=== PATIENT | male | born 1935 | race Caucasian/White ===

== ENCOUNTER 2018-08-30 10:56 | Inpatient (IN) | payer MEDICAID, MEDICARE ==
[~2018-08-30] VITALS: Ht 177.8 cm; Wt 119.1 kg
[~2018-08-30 10:56] MED LIST: EZET10TA6 PO; INSLANTI SC; MAGN400T23 PO
[2018-08-30] MEDS ORDERED: SODIUM CHLORIDE 0.9% 500 ML IV ONE (11:28)
[2018-08-30 12:19] LABS: Basophils # (auto) 0.1 uL; Basophils % (auto) 1.2 % (0.0-2.0); Eosinophils # (auto) 0.4 uL; Eosinophils % (auto) 5.5 % (0.0-7.0); Hematocrit 40.9 % (41.0-53.0); Hemoglobin 13.4 g/dL (13.5-17.5); Lymphocytes # (auto) 1.6 uL; Lymphocytes % (auto) 23.2 % (10.0-50.0); Mean Corpuscular Hemoglobin 29.3 pg (28.0-32.0); Mean Corpuscular Hgb Conc. 32.8 g/dL (32.0-36.0); Mean Corpuscular Volume 89.4 fL (80.0-100.0); Monocytes # (auto) 0.4 uL; Monocytes % (auto) 5.8 % (0.0-12.0); Neutrophils # (auto) 4.6 uL; Neutrophils % (auto) 64.3 % (37.0-80.0); Nucleated Red Blood Cells % 0.1 %; Platelet Count (auto) 186 10^3/uL (140-450); Red Blood Cells 4.57 10^6/uL (4.5-5.90); Red Cell Distribution Width 15.8 % (11.8-14.3); White Blood Cell 7.1 10^3/uL (4.4-10.8)
[2018-08-30 12:23] LABS: INR 0.98 (0.9-1.15); Partial Thromboplastin Time 24.5 sec (23.78-33.04); Prothrombin Time 10.5 sec (9.27-12.13)
[2018-08-30 12:28] LABS: Albumin 3.3 g/dL (3.4-5.0); Calcium 9.2 mg/dL (8.5-10.1); Magnesium 2.1 mg/dL (1.6-2.6); Potassium 4.8 mmol/L (3.5-5.1)
[2018-08-30 12:32] LABS: BUN/Creatinine Ratio 18.9; Bilirubin, Total 0.4 mg/dL (0.2-1.0); Total Protein 8.1 g/dL (6.4-8.2)
[2018-08-30] MEDS ORDERED: LORazepam 0.5 MG TAB PO PRN (13:15)
[2018-08-30] MEDS ORDERED: NITROGLYCERIN 0.4 MG SL TAB SL PRN (13:15)
[2018-08-30] MEDS ORDERED: LACTULOSE 20Gm/30ML SOLN PO PRN (13:15)
[2018-08-30] MEDS ORDERED: ACETAMINOPHEN 500 MG TAB PO PRN (13:15)
[2018-08-30] MEDS ORDERED: MORPHINE SULFATE 4 MG/ML SYR/VIAL IV PRN ×2 (13:15)
[2018-08-30] MEDS ORDERED: ONDANSETRON HCL 4 MG/2 ML VIAL IV PRN (13:15)
[2018-08-30] MEDS ORDERED: DEXTROSE (50%) 50ML SYRG IV PRN (13:15)
[2018-08-30] MEDS ORDERED: HYDROcodone-ACET 5/325MG TAB PO PRN (13:15)
[2018-08-30] MEDS ORDERED: TEMAZEPAM 15 MG CAP PO PRN (13:15)
[2018-08-30] MEDS ORDERED: ENOXAPARIN SOD 40 MG/0.4 ML SYRINGE SC ONE ×2 (13:30→14:45)
[2018-08-30] MEDS ORDERED: PANTOPRAZOLE 40 MG TAB PO ONE ×2 (13:30→14:45)
[2018-08-30] MEDS: CLINDAMYCIN 600MG IV 50 ML IV SCH ×2 (14:02→21:42)
[2018-08-30] MEDS: SODIUM CHLORIDE 0.9% 1,000 ML IV SCH (14:02)
[2018-08-30 14:35] VITALS: BP 155/83
[2018-08-30] MEDS ORDERED: MAGNESIUM OXIDE 400 MG TAB PO ONE (14:45)
[2018-08-30] MEDS ORDERED: METOPROLOL TARTRATE 25 MG TAB PO ONE (14:45)
[2018-08-30] MEDS ORDERED: ALLOPURINOL 100 MG TAB PO ONE (14:45)
[2018-08-30] MEDS ORDERED: CLINDAMYCIN 600MG IV 50 ML IV ONE (14:45)
[2018-08-30] MEDS ORDERED: cefTRIAXone 1GM/10ml IVPUSH 10 ML IV ONE (15:00)
[2018-08-30] MEDS: EZETIMIBE 10 MG PO SCH (16:00)
[2018-08-30 17:00] VITALS: BP 155/83
[2018-08-30] MEDS: ACCU-CHEK COMFORT CURVE STRIP VI SCH ×2 (17:20→21:44)
[2018-08-30] MEDS: InsuLIN REG 1unit/0.01ml Soln (100units/ml) SC SCH ×2 (17:21→21:44)
[2018-08-30 17:41] LABS: Urine Bacteria NONE SEEN /hpf (None Seen); Urine Blood Negative /uL (Negative); Urine Specific Gravity 1.016 (1.001-1.035); Urine WBC 1 /hpf (0 - 3)
[2018-08-30] MEDS: ATORVASTATIN 20 MG TAB PO SCH (21:42)
[2018-08-30] MEDS: METOPROLOL TARTRATE 25 MG TAB PO SCH (21:43)
[2018-08-30] MEDS: INSULIN LANTUS (GLARGINE) 1 /0.01ml (100units/ml) SC SCH (21:43)
[2018-08-30] MEDS: MAGNESIUM OXIDE 400 MG TAB PO SCH (21:43)
[2018-08-30 21:44] VITALS: BP 144/104
[2018-08-31] MEDS: SODIUM CHLORIDE 0.9% 1,000 ML IV SCH (01:34)
[2018-08-31 05:00] VITALS: BP 168/90
[2018-08-31] MEDS: InsuLIN REG 1unit/0.01ml Soln (100units/ml) SC SCH ×4 (06:32→22:45)
[2018-08-31] MEDS: ACCU-CHEK COMFORT CURVE STRIP VI SCH ×4 (06:32→22:46)
[2018-08-31] MEDS: CLINDAMYCIN 600MG IV 50 ML IV SCH ×3 (06:32→22:43)
[2018-08-31] MEDS: METOPROLOL TARTRATE 25 MG TAB PO SCH ×2 (07:36→22:44)
[2018-08-31 07:39] LABS: Albumin 3.1 g/dL (3.4-5.0)
[2018-08-31 07:45] LABS: BUN/Creatinine Ratio 20.4; Bilirubin, Total 0.5 mg/dL (0.2-1.0); Total Protein 7.2 g/dL (6.4-8.2)
[2018-08-31 08:00] VITALS: BP 132/72
[2018-08-31 08:29] LABS: INR 1.01 (0.9-1.15); Prothrombin Time 10.8 sec (9.27-12.13)
[2018-08-31] MEDS: SODIUM CHLORIDE 0.9% 250 ML IV SCH ×2 (08:33→08:45)
[2018-08-31] MEDS ORDERED: cefTRIAXone 1GM/10ml IVPUSH 10 ML IV SCH (09:00)
[2018-08-31] MEDS: ENOXAPARIN SOD 40 MG/0.4 ML SYRINGE SC SCH (10:00)
[2018-08-31] MEDS: ALLOPURINOL 100 MG TAB PO SCH (10:00)
[2018-08-31] MEDS: EZETIMIBE 10 MG PO SCH (10:00)
[2018-08-31] MEDS: MAGNESIUM OXIDE 400 MG TAB PO SCH ×2 (10:00→22:44)
[2018-08-31] MEDS: PANTOPRAZOLE 40 MG TAB PO SCH (10:00)
[2018-08-31] MEDS ORDERED: LIDOCAINE 2%HCL (LOCAL ANESTH.) INJ 10ml MDV ONE (11:32)
[2018-08-31] MEDS ORDERED: IODIXANOL 320MG/ML 100ML BTL IV ONE ×2 (11:32→12:25)
[2018-08-31] MEDS ORDERED: ANGIOMAX 250 MG VIAL IV ONE ×2 (11:37→12:25)
[2018-08-31] MEDS ORDERED: fentaNYL CITRATE 100 MCG/2 ML VL ONE (11:37)
[2018-08-31] MEDS ORDERED: MIDAZOLAM HCL 1MG/1ML-2 ML VIAL ONE (11:37)
[2018-08-31] MEDS ORDERED: SODIUM CHL 0.9% 0 ML ONE (11:37)
[2018-08-31] MEDS ORDERED: SODIUM CHL 0.9% 50 ML ONE (12:25)
[2018-08-31 16:33] VITALS: BP 167/87
[2018-08-31] MEDS: POVIDONE IODINE 10 % TOPICAL OINT 30GM TOP SCH (18:21)
[2018-08-31] MEDS: DAKINS QUARTER STR 0.125% (NaHypochlorite) 473 ML TOPICAL SOL TOP SCH ×3 (18:22→22:45)
[2018-08-31 22:00] VITALS: BP 139/75
[2018-08-31] MEDS: ATORVASTATIN 20 MG TAB PO SCH (22:43)
[2018-08-31] MEDS: INSULIN LANTUS (GLARGINE) 1 /0.01ml (100units/ml) SC SCH (22:45)
[2018-09-01 05:39] VITALS: BP 145/79
[2018-09-01] MEDS: CLINDAMYCIN 600MG IV 50 ML IV SCH ×3 (06:28→22:48)
[2018-09-01] MEDS: ACCU-CHEK COMFORT CURVE STRIP VI SCH ×4 (06:28→22:51)
[2018-09-01] MEDS: InsuLIN REG 1unit/0.01ml Soln (100units/ml) SC SCH ×4 (06:28→22:50)
[2018-09-01 08:31] VITALS: BP 148/85
[2018-09-01] MEDS: cefTRIAXone 1GM/50ML D5W 50 ML IV SCH (10:44)
[2018-09-01] MEDS: POVIDONE IODINE 10 % TOPICAL OINT 30GM TOP SCH (10:45)
[2018-09-01] MEDS: MAGNESIUM OXIDE 400 MG TAB PO SCH ×2 (10:47→22:50)
[2018-09-01] MEDS: PANTOPRAZOLE 40 MG TAB PO SCH (10:47)
[2018-09-01] MEDS: ALLOPURINOL 100 MG TAB PO SCH (10:47)
[2018-09-01] MEDS: METOPROLOL TARTRATE 25 MG TAB PO SCH ×2 (10:48→22:49)
[2018-09-01] MEDS: ENOXAPARIN SOD 40 MG/0.4 ML SYRINGE SC SCH (10:48)
[2018-09-01] MEDS: EZETIMIBE 10 MG PO SCH (10:48)
[2018-09-01] MEDS: DAKINS QUARTER STR 0.125% (NaHypochlorite) 473 ML TOPICAL SOL TOP SCH ×2 (10:49→22:00)
[2018-09-01 12:52] VITALS: BP 146/90
[2018-09-01 16:30] VITALS: BP 132/74
[2018-09-01 22:00] VITALS: BP 119/77
[2018-09-01] MEDS: ATORVASTATIN 20 MG TAB PO SCH (22:48)
[2018-09-01] MEDS: INSULIN LANTUS (GLARGINE) 1 /0.01ml (100units/ml) SC SCH (22:51)
[2018-09-02 05:00] VITALS: BP 149/76
[2018-09-02] MEDS: CLINDAMYCIN 600MG IV 50 ML IV SCH ×3 (06:58→23:07)
[2018-09-02] MEDS: InsuLIN REG 1unit/0.01ml Soln (100units/ml) SC SCH ×4 (06:58→23:10)
[2018-09-02] MEDS: ACCU-CHEK COMFORT CURVE STRIP VI SCH ×4 (06:58→23:11)
[2018-09-02 08:34] VITALS: BP 154/79
[2018-09-02] MEDS: MAGNESIUM OXIDE 400 MG TAB PO SCH ×2 (09:48→23:09)
[2018-09-02] MEDS: ALLOPURINOL 100 MG TAB PO SCH (09:48)
[2018-09-02] MEDS: PANTOPRAZOLE 40 MG TAB PO SCH (09:48)
[2018-09-02] MEDS: METOPROLOL TARTRATE 25 MG TAB PO SCH ×2 (09:48→23:09)
[2018-09-02] MEDS: EZETIMIBE 10 MG PO SCH (09:49)
[2018-09-02] MEDS: cefTRIAXone 1GM/50ML D5W 50 ML IV SCH (09:49)
[2018-09-02] MEDS: ENOXAPARIN SOD 40 MG/0.4 ML SYRINGE SC SCH (10:00)
[2018-09-02] MEDS: POVIDONE IODINE 10 % TOPICAL OINT 30GM TOP SCH (11:12)
[2018-09-02] MEDS: DAKINS QUARTER STR 0.125% (NaHypochlorite) 473 ML TOPICAL SOL TOP SCH ×2 (11:18→22:00)
[2018-09-02 12:51] VITALS: BP 145/85
[2018-09-02 16:54] VITALS: BP 126/53
[2018-09-02] MEDS ORDERED: KETOROLAC TROMETH 30 MG/ML 1ML VIAL IV ONE (17:00)
[2018-09-02] MEDS ORDERED: MIDAZOLAM HCL 1MG/1ML-2 ML VIAL IV PRN (17:00)
[2018-09-02] MEDS ORDERED: MORPHINE SULFATE 4 MG/ML SYR/VIAL IV PRN (17:00)
[2018-09-02] MEDS ORDERED: LABETALOL HCL 5 MG/ML 4ML SYRINGE IV PRN (17:00)
[2018-09-02] MEDS ORDERED: ONDANSETRON HCL 4 MG/2 ML VIAL IV ONE (17:00)
[2018-09-02] MEDS ORDERED: ePHEDrine SULFATE 50 MG/ML AMP IV PRN (17:00)
[2018-09-02] MEDS ORDERED: ACCU-CHEK COMFORT CURVE STRIP VI ONE (17:00)
[2018-09-02] MEDS ORDERED: HYDROmorphone HCL 2 MG/ML VL IV PRN (17:00)
[2018-09-02] MEDS ORDERED: fentaNYL CITRATE 100 MCG/2 ML VL ONE (17:03)
[2018-09-02] MEDS ORDERED: MIDAZOLAM HCL 1MG/1ML-2 ML VIAL ONE (17:03)
[2018-09-02] MEDS ORDERED: LIDOCAINE 1% INJ PF 5ML AMP ONE (17:28)
[2018-09-02] MEDS ORDERED: DEXAMETHASONE SOD PHOS 10MG/1ML VIAL INJ ONE (17:53)
[2018-09-02] MEDS ORDERED: PROPOFOL 10 MG/ML 20 ML IV ONE (17:53)
[2018-09-02] MEDS ORDERED: MORPHINE SULFATE 4 MG/ML SYR/VIAL IV ONE (18:00)
[2018-09-02 22:00] VITALS: BP 139/83
[2018-09-02] MEDS: ATORVASTATIN 20 MG TAB PO SCH (23:07)
[2018-09-02] MEDS: ASCORBIC ACID 500 MG TAB PO SCH (23:09)
[2018-09-02] MEDS: INSULIN LANTUS (GLARGINE) 1 /0.01ml (100units/ml) SC SCH (23:10)
[2018-09-03 05:00] VITALS: BP 139/76
[2018-09-03] MEDS: InsuLIN REG 1unit/0.01ml Soln (100units/ml) SC SCH ×4 (06:47→23:09)
[2018-09-03] MEDS: CLINDAMYCIN 600MG IV 50 ML IV SCH (06:47)
[2018-09-03] MEDS: ACCU-CHEK COMFORT CURVE STRIP VI SCH ×4 (06:48→23:10)
[2018-09-03 08:00] VITALS: BP 96/50
[2018-09-03 09:00] VITALS: BP 157/93
[2018-09-03] MEDS: POVIDONE IODINE 10 % TOPICAL OINT 30GM TOP SCH (10:00)
[2018-09-03] MEDS: EZETIMIBE 10 MG PO SCH (10:00)
[2018-09-03] MEDS: DAKINS QUARTER STR 0.125% (NaHypochlorite) 473 ML TOPICAL SOL TOP SCH ×2 (10:00→22:00)
[2018-09-03] MEDS ORDERED: LEVOFLOXACIN 500MG 100 ML IV SCH (10:00)
[2018-09-03] MEDS: PANTOPRAZOLE 40 MG TAB PO SCH (11:25)
[2018-09-03] MEDS: MULTIPLE VITAMINS W/ MINERALS TAB PO SCH (11:25)
[2018-09-03] MEDS: MAGNESIUM OXIDE 400 MG TAB PO SCH ×2 (11:25→23:09)
[2018-09-03] MEDS: ALLOPURINOL 100 MG TAB PO SCH (11:25)
[2018-09-03] MEDS: ASCORBIC ACID 500 MG TAB PO SCH ×2 (11:25→23:09)
[2018-09-03] MEDS: METOPROLOL TARTRATE 25 MG TAB PO SCH ×2 (11:26→23:08)
[2018-09-03] MEDS: ENOXAPARIN SOD 40 MG/0.4 ML SYRINGE SC SCH (11:39)
[2018-09-03 13:00] VITALS: BP_SYST 123; BP_SYST 175; BP_DIAS 78; BP_DIAS 80
[2018-09-03 17:00] VITALS: BP 161/75
[2018-09-03 21:30] VITALS: BP 148/69
[2018-09-03] MEDS: ATORVASTATIN 20 MG TAB PO SCH (23:07)
[2018-09-03] MEDS: INSULIN LANTUS (GLARGINE) 1 /0.01ml (100units/ml) SC SCH (23:10)
[2018-09-04] VITALS (7 sets, daily range): BP systolic 131–157; BP diastolic 68–81
[2018-09-04] MEDS: InsuLIN REG 1unit/0.01ml Soln (100units/ml) SC SCH ×4 (06:42→22:00)
[2018-09-04] MEDS: ACCU-CHEK COMFORT CURVE STRIP VI SCH ×4 (06:43→22:28)
[2018-09-04] MEDS: DAKINS QUARTER STR 0.125% (NaHypochlorite) 473 ML TOPICAL SOL TOP SCH ×2 (10:00→22:00)
[2018-09-04] MEDS: POVIDONE IODINE 10 % TOPICAL OINT 30GM TOP SCH (10:00)
[2018-09-04] MEDS: EZETIMIBE 10 MG PO SCH (10:00)
[2018-09-04] MEDS: ENOXAPARIN SOD 40 MG/0.4 ML SYRINGE SC SCH (10:19)
[2018-09-04] MEDS: PANTOPRAZOLE 40 MG TAB PO SCH (10:19)
[2018-09-04] MEDS: LEVOFLOXACIN 500 MG TAB PO SCH (10:20)
[2018-09-04] MEDS: MULTIPLE VITAMINS W/ MINERALS TAB PO SCH (10:20)
[2018-09-04] MEDS: ASCORBIC ACID 500 MG TAB PO SCH ×2 (10:20→22:27)
[2018-09-04] MEDS: MAGNESIUM OXIDE 400 MG TAB PO SCH ×2 (10:20→22:26)
[2018-09-04] MEDS: METOPROLOL TARTRATE 25 MG TAB PO SCH ×2 (10:20→22:26)
[2018-09-04] MEDS: ALLOPURINOL 100 MG TAB PO SCH (10:20)
[2018-09-04] MEDS: ERYTHROMYCIN 250 MG TAB PO SCH ×3 (16:16→22:25)
[2018-09-04] MEDS: ATORVASTATIN 20 MG TAB PO SCH (22:25)
[2018-09-04] MEDS: INSULIN LANTUS (GLARGINE) 1 /0.01ml (100units/ml) SC SCH (22:27)
[2018-09-05 05:00] VITALS: BP 158/85
[2018-09-05] MEDS: InsuLIN REG 1unit/0.01ml Soln (100units/ml) SC SCH ×4 (07:00→22:00)
[2018-09-05] MEDS: ERYTHROMYCIN 250 MG TAB PO SCH ×3 (07:11→22:00)
[2018-09-05] MEDS: ACCU-CHEK COMFORT CURVE STRIP VI SCH ×4 (07:12→23:03)
[2018-09-05 08:00] VITALS: BP 128/69
[2018-09-05 10:00] VITALS: BP 128/69
[2018-09-05] MEDS: EZETIMIBE 10 MG PO SCH (10:00)
[2018-09-05] MEDS: LEVOFLOXACIN 500 MG TAB PO SCH (10:10)
[2018-09-05] MEDS: MULTIPLE VITAMINS W/ MINERALS TAB PO SCH (10:10)
[2018-09-05] MEDS: ALLOPURINOL 100 MG TAB PO SCH (10:10)
[2018-09-05] MEDS: MAGNESIUM OXIDE 400 MG TAB PO SCH ×2 (10:10→23:02)
[2018-09-05] MEDS: ASCORBIC ACID 500 MG TAB PO SCH ×2 (10:10→23:03)
[2018-09-05] MEDS: PANTOPRAZOLE 40 MG TAB PO SCH (10:10)
[2018-09-05] MEDS: METOPROLOL TARTRATE 25 MG TAB PO SCH ×2 (10:13→23:02)
[2018-09-05] MEDS: ENOXAPARIN SOD 40 MG/0.4 ML SYRINGE SC SCH (10:14)
[2018-09-05] MEDS: DAKINS QUARTER STR 0.125% (NaHypochlorite) 473 ML TOPICAL SOL TOP SCH ×2 (12:44→22:00)
[2018-09-05] MEDS: POVIDONE IODINE 10 % TOPICAL OINT 30GM TOP SCH (12:44)
[2018-09-05 13:25] VITALS: BP 114/57
[2018-09-05 16:39] VITALS: BP 156/87
[2018-09-05 21:59] VITALS: BP 144/73
[2018-09-05] MEDS: ATORVASTATIN 20 MG TAB PO SCH (23:02)
[2018-09-05] MEDS: INSULIN LANTUS (GLARGINE) 1 /0.01ml (100units/ml) SC SCH (23:03)
[2018-09-06 05:28] VITALS: BP 116/60
[2018-09-06] MEDS: ERYTHROMYCIN 250 MG TAB PO SCH ×3 (06:00→20:59)
[2018-09-06] MEDS: InsuLIN REG 1unit/0.01ml Soln (100units/ml) SC SCH ×4 (07:00→21:21)
[2018-09-06] MEDS: ACCU-CHEK COMFORT CURVE STRIP VI SCH ×4 (07:54→21:23)
[2018-09-06] MEDS: EZETIMIBE 10 MG PO SCH (10:00)
[2018-09-06] MEDS: DAKINS QUARTER STR 0.125% (NaHypochlorite) 473 ML TOPICAL SOL TOP SCH ×2 (10:00→21:30)
[2018-09-06] MEDS: POVIDONE IODINE 10 % TOPICAL OINT 30GM TOP SCH (10:00)
[2018-09-06] MEDS: MULTIPLE VITAMINS W/ MINERALS TAB PO SCH (11:02)
[2018-09-06] MEDS: ENOXAPARIN SOD 40 MG/0.4 ML SYRINGE SC SCH (11:02)
[2018-09-06] MEDS: MAGNESIUM OXIDE 400 MG TAB PO SCH ×2 (11:02→21:19)
[2018-09-06] MEDS: PANTOPRAZOLE 40 MG TAB PO SCH (11:03)
[2018-09-06] MEDS: METOPROLOL TARTRATE 25 MG TAB PO SCH ×2 (11:03→21:20)
[2018-09-06] MEDS: ALLOPURINOL 100 MG TAB PO SCH (11:03)
[2018-09-06] MEDS: LEVOFLOXACIN 500 MG TAB PO SCH (11:04)
[2018-09-06] MEDS: ASCORBIC ACID 500 MG TAB PO SCH ×2 (11:04→21:19)
[2018-09-06 12:46] VITALS: BP 139/96
[2018-09-06 16:51] VITALS: BP 121/79
[2018-09-06] MEDS: ATORVASTATIN 20 MG TAB PO SCH (21:19)
[2018-09-06] MEDS: INSULIN LANTUS (GLARGINE) 1 /0.01ml (100units/ml) SC SCH (21:21)
[2018-09-06 21:48] VITALS: BP 145/68
[2018-09-07 05:45] VITALS: BP 142/76
[2018-09-07] MEDS: InsuLIN REG 1unit/0.01ml Soln (100units/ml) SC SCH ×2 (05:54→11:30)
[2018-09-07] MEDS: ERYTHROMYCIN 250 MG TAB PO SCH (05:54)
[2018-09-07] MEDS: ACCU-CHEK COMFORT CURVE STRIP VI SCH ×2 (06:41→11:30)
[2018-09-07 06:48] LABS: Basophils # (auto) 0 uL; Basophils % (auto) 0.7 % (0.0-2.0); Eosinophils # (auto) 0.3 uL; Eosinophils % (auto) 5.7 % (0.0-7.0); Hematocrit 36.5 % (41.0-53.0); Hemoglobin 11.8 g/dL (13.5-17.5); Lymphocytes # (auto) 1.1 uL; Lymphocytes % (auto) 18.7 % (10.0-50.0); Mean Corpuscular Hemoglobin 29.1 pg (28.0-32.0); Mean Corpuscular Hgb Conc. 32.3 g/dL (32.0-36.0); Mean Corpuscular Volume 90.1 fL (80.0-100.0); Monocytes # (auto) 0.4 uL; Monocytes % (auto) 6.7 % (0.0-12.0); Neutrophils % (auto) 68.2 % (37.0-80.0); Nucleated Red Blood Cells % 0.1 %; Platelet Count (auto) 155 10^3/uL (140-450); Red Blood Cells 4.05 10^6/uL (4.5-5.90); Red Cell Distribution Width 15.7 % (11.8-14.3); White Blood Cell 5.9 10^3/uL (4.4-10.8)
[2018-09-07 06:56] LABS: Potassium 4.6 mmol/L (3.5-5.1)
[2018-09-07 07:03] LABS: Albumin 3.1 g/dL (3.4-5.0); BUN/Creatinine Ratio 18.2; Bilirubin, Total 0.6 mg/dL (0.2-1.0); Calcium 8.8 mg/dL (8.5-10.1); Total Protein 7.3 g/dL (6.4-8.2)
[2018-09-07 08:00] VITALS: BP 146/67
[2018-09-07] MEDS ORDERED: LINEZOLID 600MG TABLET PO SCH (10:00)
[2018-09-07] MEDS: POVIDONE IODINE 10 % TOPICAL OINT 30GM TOP SCH (10:00)
[2018-09-07] MEDS: DAKINS QUARTER STR 0.125% (NaHypochlorite) 473 ML TOPICAL SOL TOP SCH (10:00)
[2018-09-07] MEDS: EZETIMIBE 10 MG PO SCH (10:00)
[2018-09-07] MEDS: LEVOFLOXACIN 500 MG TAB PO SCH (10:10)
[2018-09-07] MEDS: MAGNESIUM OXIDE 400 MG TAB PO SCH (10:10)
[2018-09-07] MEDS: MULTIPLE VITAMINS W/ MINERALS TAB PO SCH (10:10)
[2018-09-07] MEDS: PANTOPRAZOLE 40 MG TAB PO SCH (10:11)
[2018-09-07] MEDS: METOPROLOL TARTRATE 25 MG TAB PO SCH (10:11)
[2018-09-07] MEDS: ALLOPURINOL 100 MG TAB PO SCH (10:12)
[2018-09-07] MEDS: ENOXAPARIN SOD 40 MG/0.4 ML SYRINGE SC SCH (10:12)
[2018-09-07] MEDS: ASCORBIC ACID 500 MG TAB PO SCH (10:12)
[2018-09-07 13:04] VITALS: BP 148/74
== END 2018-09-07 15:05 | disposition home health service (06) | DRG 574 ==
LOC: ER 10:56 → TELE 10:57 → TELE-CENTR 14:47
PROVIDERS: ADMIT Internal Medicine; ATTEND Family Medicine
PROC: 047R3ZZ Dilation of Right Posterior Tibial Artery, Percutaneous Approach (ICD-10-PCS; 2018-08-31)
PROC: B41G1ZZ Fluoroscopy of Left Lower Extremity Arteries using Low Osmolar Contrast (ICD-10-PCS; 2018-08-31)
PROC: B41F1ZZ Fluoroscopy of Right Lower Extremity Arteries using Low Osmolar Contrast (ICD-10-PCS; 2018-08-31)
PROC: 0JBQ0ZZ Excision of Right Foot Subcutaneous Tissue and Fascia, Open Approach (ICD-10-PCS; 2018-09-02)
PROC: 0HRMXK3 Replacement of Right Foot Skin with Nonautologous Tissue Substitute, Full Thickness, External Approach (ICD-10-PCS; principal; 2018-09-02 17:15)
DX: L03.115 Cellulitis of right lower limb (principal); M86.8X7 Other osteomyelitis, ankle and foot; I13.0 Hypertensive heart and chronic kidney disease with heart failure and stage 1 through stage 4 chronic kidney disease, or unspecified chronic kidney disease; I11.0 Hypertensive heart disease with heart failure; E11.51 Type 2 diabetes mellitus with diabetic peripheral angiopathy without gangrene; E11.621 Type 2 diabetes mellitus with foot ulcer; I50.9 Heart failure, unspecified; J44.9 Chronic obstructive pulmonary disease, unspecified; M10.9 Gout, unspecified; E11.22 Type 2 diabetes mellitus with diabetic chronic kidney disease; E11.42 Type 2 diabetes mellitus with diabetic polyneuropathy; L97.519 Non-pressure chronic ulcer of other part of right foot with unspecified severity; N18.9 Chronic kidney disease, unspecified; E11.69 Type 2 diabetes mellitus with other specified complication; I70.209 Unspecified atherosclerosis of native arteries of extremities, unspecified extremity; E66.9 Obesity, unspecified; M19.90 Unspecified osteoarthritis, unspecified site; E78.00 Pure hypercholesterolemia, unspecified; I25.10 Atherosclerotic heart disease of native coronary artery without angina pectoris; B95.2 Enterococcus as the cause of diseases classified elsewhere; I25.2 Old myocardial infarction; Z79.4 Long term (current) use of insulin; Z86.73 Personal history of transient ischemic attack (TIA), and cerebral infarction without residual deficits; Z89.421 Acquired absence of other right toe(s); Z89.439 Acquired absence of unspecified foot; Z91.14 Patient's other noncompliance with medication regimen; Z91.19 Patient's noncompliance with other medical treatment and regimen; Z99.81 Dependence on supplemental oxygen; Z79.899 Other long term (current) drug therapy
CPT/HCPCS: 36415; 71045; 73620; 78315; 80053; 80061; 81001; 82962; 83036; 83735; 85025; 85610; 85652; 85730; 87040; 87070; 87075; 87077; 87186; 87205; 93005; 93926; 96361; 96365; 96372; 96375; 99152; A6257; J0696; J1100; J1815; J1956; J2001; J2250; J2704; J3490; Q9967